=== PATIENT | female | born 1970 | race Hispanic/Latino ===

== ENCOUNTER 2023-03-25 10:58 | Emergency (ER) | payer OTHER ==
[2023-03-25] MEDS ORDERED: Ibuprofen 800 MG TAB ONE (11:23)
== END 2023-03-25 11:30 | disposition home or self-care (01) ==
LOC: NAV ERS 10:58
DX: S46.911A Strain of unspecified muscle, fascia and tendon at shoulder and upper arm level, right arm, initial encounter (principal); S73.101A Unspecified sprain of right hip, initial encounter; G44.309 Post-traumatic headache, unspecified, not intractable; J44.9 Chronic obstructive pulmonary disease, unspecified; I10 Essential (primary) hypertension; Z87.891 Personal history of nicotine dependence; Z79.51 Long term (current) use of inhaled steroids; V89.2XXA Person injured in unspecified motor-vehicle accident, traffic, initial encounter
CPT/HCPCS: 99283